=== PATIENT | male | born 1965 | race Hispanic/Latino ===

== ENCOUNTER → 2024-06-05 | Outpatient (CLI) | payer OTHER ==
[~2024-06-05] MED LIST: CETI10CA5 PO; LIRA0.6P2 SQ; ROSU10TA22 GT; SITA1TAB6 PO; TELM40 GT
== END | disposition home or self-care (01) ==
LOC: RAH 10:47
PROVIDERS: ATTEND Family Medicine
DX: Z13.6 Encounter for screening for cardiovascular disorders (principal)
CPT/HCPCS: 75571

== ENCOUNTER → 2024-07-04 | Outpatient (CLI) | payer SELFPAY ==
[2024-07-04] MEDS: REGADENOSON 0.4 MG/5 ML PF SYG IVP SCH (11:07)
--- NOTE | 2024-07-04 15:42 | HMCSR ---
APPROVED REPORT Height: 5 ft 4in Weight: 190 lbs TEST INDICATIONS ABN FINDINGS ON DX IMAGING OF HEART COR The imaging protocol used to acquire images was Rest Tc-99m/stress Tc-99m 1 day Consent: The procedure was explained and understood by the patient. Informerd consent was witnessed Channing ADAMS RN First, low dose rest was performed then high dose stress. RESTING DATA: The resting ekg shows: NSR Rest SPECT myocardial perfusion imaging was performed in supine position minutes following the intra venous injection of 12.5 mCi of Tc-99 Sestamibi. Time of rest injection: 09:30: Date: 07/04/2024 PHARMACOLOGIC STRESS: Pharmacologic stress test was performed by injecting regadenoson 0.4 mg IV push followed by the intra venous injection of 31 mCi of Tc-99 Sestamibi. Time of stress injection: 10:45: Date: 07/04/2024 Heart Rate at time of stress injection: 90 bpm. The images were gated to evaluate regional wall motion and calculate left ventricular ejection fracti on. STRESS DETAILS Reason for Termination: Infusion complete Stress Symptoms: Dyspnea Max HR Achieved: 105 bpm % of APMHR Achieved: 76 Max Blood Pressure: 113/74 mmHg Stress ECG: NSR Study quality was good. Lung uptake was Normal. LEFT VENTRICLE The left ventricular ejection fraction was calculated to be 60%.TID = . LV PERFUSION The rest and stress images show normal perfusion. IMPRESSION Normal pharmacologic nuclear stress test. Conclusion Normal pharmacologic nuclear stress test NO ischemia NO infarct
== END | disposition home or self-care (01) ==
LOC: RAH 08:57
PROVIDERS: ATTEND Family Medicine
DX: I10 Essential (primary) hypertension (principal); R93.1 Abnormal findings on diagnostic imaging of heart and coronary circulation; R07.9 Chest pain, unspecified; R06.00 Dyspnea, unspecified
CPT/HCPCS: 78452; 93017; J2785; A9500 ×2